=== PATIENT | female | born 1985 | race Two or more races ===

== ENCOUNTER 2022-09-01 12:04 | Emergency (ER) | payer MEDICAID, OTHER ==
[~2022-09-01] VITALS: Ht 160 cm; Wt 81.0 kg
[2022-09-01] MEDS ORDERED: NAPR500T31 PO (15:25)
[2022-09-01] MEDS ORDERED: CEPH-510 PO (15:25)
[2022-09-01 15:30] VITALS: BP 125/86
== END 2022-09-01 15:32 | disposition home or self-care (01) ==
LOC: ER 12:04
DX: S90.425A Blister (nonthermal), left lesser toe(s), initial encounter (principal); Z79.899 Other long term (current) drug therapy; X58.XXXA Exposure to other specified factors, initial encounter; Y93.89 Activity, other specified; Y92.89 Other specified places as the place of occurrence of the external cause; Y99.8 Other external cause status